=== PATIENT | male | born 1940 | race Caucasian/White ===

== ENCOUNTER 2016-11-10 06:58 | Day surgery (SDC) | payer OTHER ==
[~2016-11-10] VITALS: Ht 177.8 cm; Wt 58.5 kg
--- NOTE | ~2016-11-10 | O ---
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 PROCEDURE: Bilateral lower lid ectropion repair with left transconjunctival lower lid and cheek lift. SURGEON: Yariel Zheng MD [employer]ERING TEACHER: None. ANESTHESIA: MAC. COMPLICATIONS: None. 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 He presents today for a bilateral lower lid ectropion repair combined with a transconjunctival lower lid and cheek lift. Informed consent was obtained to include, but not limited to the potential risk for loss of vision, bleeding, infection, failure to improve the problem, the potential need for further surgery or treatment. DESCRIPTION OF PROCEDURE: The patient was taken to the operating room where 2% Xylocaine with epinephrine mixed with equal parts of 0.75% Marcaine with Wydase was administered transcutaneously and transconjunctivally to the lower lid and the lateral canthus. On the left side, the cheek and the infratemporal fossa were additionally anesthetized. The patient was subsequently prepped and draped in the usual sterile fashion. The left lateral canthus was then clamped with a Bowen clamp. [facility] [address] [place] [address] OPERATIVE REPORT Name: JALEN DECKER Room #: DEP [facility].#: [id number] Admission: 11/10/16 Attend Phys: Yariel Zheng MD Discharge: 11/10/16 Date of : 42 Report #: [id number] canthotomy and cantholysis was subsequently performed. A tarsal strip was then prepared laterally removing the lash bearing portion of the redundant lid margin and the redundant tarsal plate. A transconjunctival incision was then made below the inferior border of the tarsal plate. The dissection was then carried down into the premalar tissues. The lower lid and cheek were then elevated and resuspended with interrupted mattress 5-0 chromic sutures. This lifted the cheek quite well. Attention was then turned to completion of the ectropion repair. The tarsal strip was secured to the internal portion of the lateral orbital tubercle with interrupted 5-0 Prolene sutures. The subcutaneous structures and the skin were then closed with interrupted 6-0 plain gut sutures. Attention was then turned to the other side. The right lateral canthus was then clamped with a Bowen clamp. A sharp canthotomy and cantholysis was then performed. A tarsal strip was then prepared laterally removing the lash bearing portion of the redundant lid margin and the redundant tarsal plate. Hemostasis was then re-achieved. The tarsal strip was then resuspended from the internal portion of the lateral orbital tubercle with 2 interrupted 5-0 Prolene sutures. The subcutaneous structures and the skin were then closed with interrupted 6-0 plain gut sutures. The wounds were then cleaned and dressed with bacitracin ophthalmic ointment. The patient was subsequently transported to the recovery area having tolerated the procedures well with no anesthetic or operative complications being noted. By: [id number] Yariel Zheng MD /nt
[~2016-11-10 06:58] MED LIST: ARANESP100 MCG/1 IJ; COUMADIN 3 MG TA3 M1 PO; COUMADIN 5 MG TA5 M1 PO; DIAZEPAM 10 MG10 M1 PO; LOPRESSOR25 PO; NORCO 5-325 TA1 EACH PO; VENOFER100 MG/51 IV
[2016-11-10 13:30] VITALS: BP 118/90
[2016-11-10 13:30] LABS: HEMATOCRIT 42.8 % (42.0-52.0); HEMOGLOBIN 14.2 gm/dL (14.0-18.0); MCH 33.3 pg (26.0-34.0); MCHC 33.1 g/dL (28.0-37.0); MCV 100.6 fL (80.0-100.0); RBC 4.25 mil/uL (4.50-6.00); RDW 14.9 % (10.5-14.5); WBC 4.1 thou/uL (4.0-11.0)
[2016-11-10 13:43] LABS: CALCIUM 9.6 mg/dL (8.5-10.1); CREATININE 1.5 mg/dL (0.7-1.3); POTASSIUM 5.1 mmol/L (3.5-5.1)
[2016-11-10 13:45] LABS: INR 1.1; PROTIME 11.1 Seconds (9.3-11.4)
[2016-11-10 13:48] LABS: ALBUMIN 3.8 g/dL (3.4-5.0); TOTAL BILIRUBIN 1.1 mg/dL (<0.1-1.0); TOTAL PROTEIN 7.5 g/dL (6.4-8.2)
== END 2016-11-10 15:50 | disposition home or self-care (01) ==
LOC: OR 06:58 → TBA 06:58 → OR 11:12
PROVIDERS: Ophthalmology
DX: H02.105 Unspecified ectropion of left lower eyelid (principal); H02.102 Unspecified ectropion of right lower eyelid; H02.535 Eyelid retraction left lower eyelid; H02.205 Unspecified lagophthalmos left lower eyelid; H18.9 Unspecified disorder of cornea; I48.91 Unspecified atrial fibrillation; I50.9 Heart failure, unspecified; D64.9 Anemia, unspecified; F17.210 Nicotine dependence, cigarettes, uncomplicated; Z95.2 Presence of prosthetic heart valve; Z98.890 Other specified postprocedural states; Z79.899 Other long term (current) drug therapy; Z79.01 Long term (current) use of anticoagulants
CPT/HCPCS: 50010; 50101; 50386; 50398; 51636; 56527; 56531; 62110; 62850; 70005